=== PATIENT | female | born 1980 | race Caucasian/White ===

== ENCOUNTER 2023-07-16 22:29 | Emergency (ER) | payer SELFPAY ==
[2023-07-16 22:29] VITALS: BP 140/90; PULSE 90; RESP 20; TEMP 37.2; O2SAT 95
--- NOTE | 2023-07-16 22:33 | ECG_ITS ---
Measurements Intervals [place] Rate: 116 P: 80 CT: 122 QRS: 55 QRSD: 81 T: 60 QT: 324 QTc: 451 Interpretive Statements SINUS TACHYCARDIA POSSIBLE RIGHT ATRIAL ENLARGEMENT LEFT ATRIAL ENLARGEMENT RSR' IN V1 OR V2, PROBABLY NORMAL VARIANT DELAYED PRECORDIAL R/S TRANSITION BORDERLINE ST-T WAVE ABNORMALITY- DIFFUSE LEADS BASELINE ARTIFACT- I, II, III, AVR, AVL, AVF, V2 ABNORMAL ECG NO PREVIOUS ECG AVAILABLE FOR COMPARISON Electronically Signed On 07-17-2023 6:36:39 CDT by Yassine Spencer D.O.
--- NOTE | 2023-07-16 22:39 | ED.PSYCH ---
HPI - Psych General Chief Complaint: Psychiatric Symptoms Stated Complaint: Depressed Source: patient Mode of arrival: ambulatory Limitations: no limitations History of Present Illness HPI Narrative: this is a 43-year-old female with no significant past medical history recently had a break-up from her significant other and has been having depression and anxiety over the last couple of weeks, has not been able to go to work not been able to socialize appetite is diminished. The patient is not currently suicidal and does not have a plan. Although she did mention that she has had some thoughts of suicide in the in the past over the past couple. Currently suicidal ideation. Patient appears anxious with no chest pain no shortness of breath no fever chills no nausea vomiting no pain. complaint: feels depressed Onset (ago): week(s) Duration: constant History of same: No Related Data Home Medications Medication Instructions Recorded Confirmed No Home Medications 07/16/23 07/16/23 Allergies Allergy/AdvReac Type Severity Reaction Status Date / Time No Known Allergies Allergy Verified 07/16/23 22:42 Review of Systems Review of Systems: All systems reviewed & are unremarkable except as noted in HPI and below PMFSH Past Medical History Medical History Patient denies medical problems Exam Const: General: no acute distress Nutritional Appearance: thin Orientation/consciousness: patient oriented x3 Limitations: no limitations Eyes: Conjunctivae: conjunctivae normal Pupils: Equal, round and reactive pupils present Chest: Chest palpation & inspection: normal inspection of the chest Resp: Effort & Inspection: normal respiratory effort Auscultation: clear to auscultation bilaterally Cardio: Rate: regular rate Rhythm: regular rhythm GI: GI Palp: Yes Soft to palpation Back/Spine/Pelvis: Back: no CVA tenderness Skin: General skin exam: normal color Rashes: no rashes Wounds: no wounds Neuro: General: patient oriented x3 and moves all extremities Cranial nerves: Yes Nystagmus not present Extrem: General: normal to inspection and no clubbing, cyanosis or edema Psych: Affect: Sad affect present Attitude: cooperative Course Course Emergency Course: patient had EKG and blood work that was performed and evaluated with patient. The patient was given a dose of p.o. Xanax for anxiety and mental health to evaluate. Vital Signs Vital signs: Vital Signs Temperature 37.2 C 07/16/23 22:29 Pulse Rate 90 07/16/23 22:29 Respiratory Rate 20 07/16/23 22:29 Blood Pressure 140/90 07/16/23 22:29 Pulse Oximetry 95 07/16/23 22:29 Oxygen Delivery Room Air 07/16/23 22:29 Temperature 37.2 C 07/16/23 22:29 Pulse Rate 88 07/16/23 23:55 Respiratory Rate 20 07/16/23 23:55 Blood Pressure 138/90 07/16/23 23:55 Pulse Oximetry 95 07/16/23 23:55 Oxygen Delivery Room Air 07/16/23 23:55 MDM - Psych Lab Data 07/16/23 22:47 07/16/23 22:47 Labs: Lab Results 07/16/23 07/16/23 07/16/23 Range/Units 22:33 22:47 23:07 WBC 18.7 H (4.8-10.8) K/mm3 RBC 4.77 (4.20-5.40) M/mm3 Hgb 14.8 (12.0-15.0) g/dL Hct 42.5 (35.0-49.0) % MCV 89.1 (78.0-102.0) fL MCH 31.0 (27.0-31.0) pg MCHC 34.8 (32.0-36.0) g/dL RDW 14.3 (11.6-14.4) % Plt Count 338 (150-420) K/mm3 MPV 9.7 (9.2-11.8) fl Immature Gran % (Auto) 0.3 H (0.0-0.0) % Neut % (Auto) 78.8 H (50.0-70.0) % Lymph % (Auto) 13.7 L (18.0-42.0) % [place] % (Auto) 6.4 (2.0-11.0) % Eos % (Auto) 0.2 L (1.0-6.0) % Baso % (Auto) 0.6 (0.0-1.0) % Lymph # (Auto) 2.56 (1.10-4.50) K/mm3 [place] # (Auto) 1.20 H (0.10-0.90) K/mm3 Eos # (Auto) 0.03 (0.02-0.50) K/mm3 Baso # (Auto) 0.11 H (0.00-0.10) K/mm3 Abs Immat Gran (auto) 0.05 H (0.00-0.00) K/mm3 Absolute Neuts (au
[2023-07-16 22:51] LABS: Basophils Absolute Auto 0.11 K/mm3 (0.00-0.10); Basophils Percent Auto 0.6 % (0.0-1.0); Eosinophils Absolute Auto 0.03 K/mm3 (0.02-0.50); Eosinophils Percent Auto 0.2 % (1.0-6.0); Hematocrit 42.5 % (35.0-49.0); Hemoglobin 14.8 g/dL (12.0-15.0); Immature Granulocyte Absolute 0.05 K/mm3 (0.00-0.00); Immature Granulocyte Percent A 0.3 % (0.0-0.0); Lymphocytes Absolute Auto 2.56 K/mm3 (1.10-4.50); Lymphocytes Percent Auto 13.7 % (18.0-42.0); Mean Corpuscular HGB Conc 34.8 g/dL (32.0-36.0); Mean Corpuscular Volume 89.1 fL (78.0-102.0); Mean Platelet Volume 9.7 fl (9.2-11.8); Monocytes Percent Auto 6.4 % (2.0-11.0); Neutrophils Absolute Auto 14.7 K/mm3 (1.7-7.2); Neutrophils Percent Auto 78.8 % (50.0-70.0); Platelet Count Result 338 K/mm3 (150-420); Red Blood Count 4.77 M/mm3 (4.20-5.40); Red Cell Distribution Width 14.3 % (11.6-14.4); White Blood Count 18.7 K/mm3 (4.8-10.8)
[2023-07-16] MEDS: ALPRAZolam (*CRX) 0.5 MG TABLET PO (22:55)
[2023-07-16 23:02] LABS: SPREG INTERNAL CONTROL Positive; Serum Qual hCG Negative
[2023-07-16 23:07] LABS: Appearance Urine Clear (Clear); Bilirubin Urine Negative (Negative); Blood Urine 3+ (Negative); Color Urine Light Yellow (Yellow); Glucose Urine UA Negative (Negative); Ketones Urine Trace (Negative); Leukocyte Esterase Ur Negative LEU/UL (Negative); Nitrate Urine Negative (Negative); Protein Urine Negative (Negative); Specific Grav Ur 1.025 (1.010-1.020); Urobilinogen Urine 0.2 mg/dL (0.2-1.0)
[2023-07-16 23:08] LABS: Alanine Aminotransferase 13 U/L (14-59); Albumin Level 3.7 g/dL (3.4-5.0); Alkaline Phosphatase 86 U/L (46-116); Anion Gap 14 mmol/L (8-16); Aspartate Amino Transferase 12 U/L (15-37); Bilirubin,Total 0.2 mg/dL (0.00-1.00); Blood Urea Nitrogen 14 mg/dL (7-18); Calcium 9.1 mg/dL (8.5-10.1); Carbon Dioxide 23 mmol/L (21-32); Chloride 101 mmol/L (98-108); Estimated CRCL calculation 50 ml/min; Estimated Glomerular Filt Rate > 60; Glucose 116 mg/dL (70-99); Osmolality Calculated 287 mOsm/kg (285-295); Potassium 3.8 mmol/L (3.5-5.1); Salicylate 4.5 mg/dL (2.8-20.0); Sodium 138 mmol/L (136-145); Total Protein 7.2 g/dL (6.4-8.2)
[2023-07-16 23:12] LABS: Acetaminophen < 2 ug/mL (10-30); Ethanol < 3 mg/dL (0-6)
[2023-07-16 23:12] LABS: Add Urine Microscopic? YES; Bacteria Urine 2+ /hpf; Squamous Epithelial Cell Urine Moderate /hpf (Few)
[2023-07-16 23:13] LABS: Amphetamine Screen Urine Negative (Negative); Barbiturate Screen Urine Negative (Negative); Benzodiazepines Screen Urine Negative (Negative); Cannabinoid Screen Urine Negative (Negative); Cocaine Screen Urine Negative (Negative); Methadone Screen Urine Negative (Negative); Opiate Screen Urine Negative (Negative); Phencyclidine Screen Urine Negative (Negative)
[2023-07-16 23:27] LABS: SARS-CoV-2 RNA PCR Negative (Negative)
--- NOTE | 2023-07-16 23:50 | PC.NURSE ---
called pharmacy [facility], he refused to help with ordering the medicine. had to call three times to get the med verified
--- NOTE | 2023-07-16 23:51 | PC.NURSE ---
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
[2023-07-16] MEDS: NITROFURANTOIN MONOHYD MACROCR 100 MG CAP PO (23:52)
[2023-07-16 23:55] VITALS: BP 138/90; PULSE 88; RESP 20; O2SAT 95
== END 2023-07-17 02:41 | disposition home or self-care (01) ==
PROVIDERS: Emergency Provider Emergency Medicine
DX: F32.A Depression, unspecified (principal); Z20.822 Contact with and (suspected) exposure to COVID-19
CPT/HCPCS: 36415; 80053; 80307; 81001; 84703; 85025; 87635; 93005; 99284; A9270